=== PATIENT | male | born 1995 | race Caucasian/White ===

== ENCOUNTER 2017-06-10 09:26 | Emergency (ER) | payer OTHER, MEDICAID ==
[~2017-06-10] VITALS: Ht 175.3 cm; Wt 95.3 kg
[~2017-06-10 09:26] MED LIST: ACETAMINOPHEN-1 EAC1 PO; ALBUTEROL INHAL17 GM IH; ALBUTEROL2.5 MG/31 IH; AMOXICILLIN125 MG PO; AMOXICILLIN875 MG PO; AZITHROMYCIN 2250 MG PO; BENADRYL ALLERG25 MG PO; BENZONATATE100 MG; BUPROPION HCL100 MG PO; CELEXA 20 MG TA20 M1; DESYREL50 MG; DOXYCYCLINE 10100 M1 PO; DOXYCYCLINE 10100 MG PO; EPIPEN0.3 MG/0.3 IM; FOCALIN XR10 MG; IBUPROFEN 800800 M1 PO; LISINOPRIL20 MG PO; MEDROLDOSEPACK PO; ONDANSETRON HCL4 M2 PO; OSELB75 PO; OXCARBAZEPINE150 MG PO; PREDNISONE 20 M20 MG PO; PRINIVIL40 MG PO; SEROQUEL 100 M100 M1 PO; SEROQUEL 50 MG50 M1 PO; SEROQUEL XR50 MG PO; TOPAMAX 25 MG T25 MG OR; TRIAMCINOLONE A60 M1 TP; TRILEPTAL150 MG PO; VITAMIN; WELLBUTRIN 100100 MG PO; WELLBUTRIN SR150 MG; ZOFRAN ODT4 MG PO; ZOLOFT25 MG PO; ZPAK; ZPAK PO
[2017-06-10 10:37] VITALS: BP 145/92
== END 2017-06-10 10:38 | disposition home or self-care (01) ==
LOC: M.ERS 09:26
DX: S61.012A Laceration without foreign body of left thumb without damage to nail, initial encounter (principal); I10 Essential (primary) hypertension; F31.9 Bipolar disorder, unspecified; F41.9 Anxiety disorder, unspecified; Z91.018 Allergy to other foods; W26.0XXA Contact with knife, initial encounter; Y93.89 Activity, other specified; Y92.89 Other specified places as the place of occurrence of the external cause; Y99.8 Other external cause status

== ENCOUNTER 2017-08-06 08:35 | Emergency (ER) | payer MEDICAID ==
[~2017-08-06] VITALS: Ht 175.3 cm; Wt 88.5 kg
[2017-08-06] MEDS ORDERED: AMOXICILLIN 50500 MG PO (09:08)
[2017-08-06 09:40] LABS: INFLUENZA A ANTIGEN None Detected (None Detect); INFLUENZA B ANTIGEN None Detected (None Detect)
[2017-08-06 09:42] VITALS: BP 148/65
== END 2017-08-06 09:53 | disposition home or self-care (01) ==
LOC: M.ERS 08:35
PROVIDERS: Family Medicine
DX: J06.9 Acute upper respiratory infection, unspecified (principal); F41.0 Panic disorder [episodic paroxysmal anxiety]; F31.9 Bipolar disorder, unspecified; I10 Essential (primary) hypertension; Z91.018 Allergy to other foods

== ENCOUNTER 2017-12-22 15:09 | Emergency (ER) | payer MEDICAID ==
[~2017-12-22] VITALS: Ht 177.8 cm; Wt 93.0 kg
[~2017-12-22 15:09] MED LIST changes: +AMOXICILLIN 50500 MG PO
[2017-12-22 15:15] VITALS: BP 125/73
[2017-12-22] MEDS ORDERED: ZPAK PO (15:51)
[2017-12-22] MEDS ORDERED: BENZONATATE200 MG PO (15:51)
== END 2017-12-22 15:57 | disposition home or self-care (01) ==
LOC: M.ERS 15:09
DX: J20.9 Acute bronchitis, unspecified (principal); R50.9 Fever, unspecified; I10 Essential (primary) hypertension; F31.9 Bipolar disorder, unspecified; F41.9 Anxiety disorder, unspecified; Z91.02 Food additives allergy status

== ENCOUNTER 2017-12-25 15:56 | Emergency (ER) | payer MEDICAID ==
[~2017-12-25] VITALS: Ht 177.8 cm; Wt 93.0 kg
[~2017-12-25 15:56] MED LIST changes: +BENZONATATE200 MG PO
[2017-12-25] MEDS ORDERED: PROAIR HFA8.5 GM INH (16:22)
[2017-12-25] MEDS ORDERED: PREDNISONE 20 M20 M1 PO (16:22)
[2017-12-25 16:50] VITALS: BP 151/76
== END 2017-12-25 16:50 | disposition home or self-care (01) ==
LOC: M.ERS 15:56
DX: J20.9 Acute bronchitis, unspecified (principal); I10 Essential (primary) hypertension; F31.9 Bipolar disorder, unspecified; F41.9 Anxiety disorder, unspecified; Z91.02 Food additives allergy status

== ENCOUNTER 2018-12-16 13:29 | Emergency (ER) | payer MEDICAID ==
[~2018-12-16] VITALS: Ht 175.3 cm; Wt 95.3 kg
[~2018-12-16 13:29] MED LIST changes: +PREDNISONE 20 M20 M1 PO; +PROAIR HFA8.5 GM INH
[2018-12-16 14:12] LABS: ABSOLUTE BASOPHILS 0.1 thou/uL (0.0-0.2); ABSOLUTE EOSINOPHILS 0.1 thou/uL (0.0-0.7); ABSOLUTE LYMPHOCYTES 1.6 thou/uL (0.8-5.3); ABSOLUTE MONOCYTES 0.8 thou/uL (0.0-1.2); ABSOLUTE NEUTROPHILS 3.9 thou/uL (1.6-8.1); BASOPHILS 0.9 %; EOSINOPHILS 0.8 %; HEMATOCRIT 45.6 % (42.0-52.0); HEMOGLOBIN 15.7 gm/dL (14.0-18.0); LYMPHOCYTES 24.9 %; MCH 31.1 pg (26.0-34.0); MCHC 34.4 g/dL (28.0-37.0); MCV 90.6 fL (80.0-100.0); MONOCYTES 12.4 %; MPV 9.3 fl. (7.2-11.1); NUCLEATED RBCS 0 /100WBC; PLATELET COUNT* 211 thou/uL (150-400); RBC 5.04 mil/uL (4.50-6.00); RDW-CV 13.2 % (10.5-14.5); WBC 6.4 thou/uL (4.0-11.0)
[2018-12-16 14:22] LABS: ANION GAP 10 mmol/L (7-16); BUN 10 mg/dL (7-18); CALCIUM 8.6 mg/dL (8.5-10.1); CHLORIDE 107 mmol/L (98-107); CO2 28 mmol/L (21-32); GLUCOSE 92 mg/dL (70-99); POTASSIUM 3.4 mmol/L (3.5-5.1); SODIUM 145 mmol/L (136-145)
[2018-12-16 14:34] LABS: ALBUMIN 3.7 g/dL (3.4-5.0); ALKALINE PHOSPHATASE 139 U/L (46-116); LIPASE 142 U/L (73-393); SGOT 21 U/L (15-37); SGPT 40 U/L (30-65); TOTAL BILIRUBIN 0.6 mg/dL (<0.1-1.0); TOTAL PROTEIN 7.1 g/dL (6.4-8.2); TROPONIN-I LEVEL <0.06 ng/mL (<0.06)
[2018-12-16 17:49] VITALS: BP 146/92
--- NOTE | 2018-12-17 10:54 | EKG ---
[place] [address] ELECTROCARDIOGRAM REPORT Name: GEOVANNI BROWN Room: [facility]#: [id number] Admission: 12/16/18 Attend Phys: Discharge: 12/16/18 Date of : [birth year] Report #: [id number] THIS REPORT FOR: //name// [facility] ED Test Date: 2018-12-16 Test Time: 14:08:20 Pat Name: GEOVANNI STEPHANIE Department: Room: Gender: M Hospice Admitting Clerk: CHARY : 1995 Requested By: Aashish Roblero Order Number: [id number] MD: Keanu Burden Measurements Intervals [place] Rate: 100 P: 58 RI: 146 QRS: 42 QRSD: 95 T: 32 QT: 324 QTc: 418 Interpretive Statements Incomplete analysis due to missing data in precordial lead(s) Sinus tachycardia ST elev, probable normal early repol pattern Missing lead(s): V3 Compared to ECG 12/11/2018 23:05:49 Sinus rhythm no longer present ST (T wave) deviation still present Electronically Signed On 12-17-2018 10:54:28 CDT by Keanu Burden [email or web address] <ELECTRONICALLY SIGNED> By: Keanu Burden MD, [facility] 12/17/18 1054 1408 1408 Keanu Burden MD, [facility] /EPI
--- NOTE | 2018-12-17 14:19 | EKG ---
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 12/17/18 1419 1438 1438 Keanu Burden MD, FACC /EPI
== END 2018-12-16 17:49 | disposition home or self-care (01) ==
LOC: M.ERS 13:29
PROVIDERS: Emergency Medicine Emergency Medical Services
DX: T67.5XXA Heat exhaustion, unspecified, initial encounter (principal); X58.XXXA Exposure to other specified factors, initial encounter; Y93.89 Activity, other specified; Y92.89 Other specified places as the place of occurrence of the external cause; Y99.8 Other external cause status; I10 Essential (primary) hypertension; F31.9 Bipolar disorder, unspecified; F41.9 Anxiety disorder, unspecified; Z91.09 Other allergy status, other than to drugs and biological substances; R55 Syncope and collapse

== ENCOUNTER 2018-12-27 21:28 | Emergency (ER) | payer MEDICAID ==
[~2018-12-27] VITALS: Ht 175.3 cm; Wt 95.3 kg
[2018-12-27 22:04] LABS: URINE BILIRUBIN NEGATIVE (Negative); URINE BLOOD NEGATIVE (Negative); URINE CLARITY CLEAR; URINE COLOR YELLOW; URINE GLUCOSE-RANDOM NEGATIVE (Negative); URINE KETONES NEGATIVE (Negative); URINE LEUKOCYTES-REFLEX NEGATIVE (Negative); URINE NITRITE-REFLEX NEGATIVE (Negative); URINE PROTEIN NEGATIVE (Negative); URINE SPECIFIC GRAVITY 1.015 (1.005-1.030)
[2018-12-27 22:10] LABS: ABSOLUTE EOSINOPHILS 0.1 thou/uL (0.0-0.7); ABSOLUTE LYMPHOCYTES 1.8 thou/uL (0.8-5.3); ABSOLUTE MONOCYTES 0.8 thou/uL (0.0-1.2); ABSOLUTE NEUTROPHILS 3.1 thou/uL (1.6-8.1); BASOPHILS 0.8 %; EOSINOPHILS 2.4 %; HEMATOCRIT 48.2 % (42.0-52.0); HEMOGLOBIN 16.2 gm/dL (14.0-18.0); LYMPHOCYTES 31.3 %; MCH 30.9 pg (26.0-34.0); MCHC 33.6 g/dL (28.0-37.0); MCV 91.9 fL (80.0-100.0); MONOCYTES 13.1 %; MPV 9.7 fl. (7.2-11.1); NUCLEATED RBCS 0 /100WBC; PLATELET COUNT* 202 thou/uL (150-400); POLYS 52.4 %; RBC 5.24 mil/uL (4.50-6.00); WBC 5.8 thou/uL (4.0-11.0)
[2018-12-27 22:16] LABS: ANION GAP 8 mmol/L (7-16); BUN 9 mg/dL (7-18); CALCIUM 9.4 mg/dL (8.5-10.1); CHLORIDE 105 mmol/L (98-107); CO2 27 mmol/L (21-32); GLUCOSE 107 mg/dL (70-99); POTASSIUM 3.4 mmol/L (3.5-5.1); SODIUM 140 mmol/L (136-145)
[2018-12-27 22:26] LABS: ALBUMIN 3.9 g/dL (3.4-5.0); ALKALINE PHOSPHATASE 149 U/L (46-116); SGOT 22 U/L (15-37); SGPT 37 U/L (30-65); TOTAL BILIRUBIN 0.5 mg/dL (<0.1-1.0); TOTAL PROTEIN 7.5 g/dL (6.4-8.2); TROPONIN-I LEVEL <0.06 ng/mL (<0.06)
[2018-12-28] MEDS ORDERED: ZOFRAN ODT4 MG PO (00:21)
[2018-12-28 00:30] VITALS: BP 123/90
--- NOTE | 2018-12-28 16:43 | EKG ---
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 : 1995 Requested By: Martina Gaxiola Order Number: [id number] MD: Mitch Rosario Measurements Intervals [place] Rate: 89 P: 48 RI: 138 QRS: 51 QRSD: 96 T: 8 QT: 336 QTc: 409 Interpretive Statements Sinus rhythm ST elev, probable normal early repol pattern Compared to ECG 12/16/2018 14:38:25 No significant changes Electronically Signed On 12-28-2018 16:43:41 CDT by Mitch Rosario [email or web address] <ELECTRONICALLY SIGNED> By: Mitch Rosaroi MD, [facility] 12/28/18 1643 2149 48 Mitch Rosario MD, FACC /EPI
== END 2018-12-28 00:30 | disposition home or self-care (01) ==
LOC: M.ERS 21:28
PROVIDERS: Personal Emergency Response Attendant
DX: K52.9 Noninfective gastroenteritis and colitis, unspecified (principal); F31.9 Bipolar disorder, unspecified; I10 Essential (primary) hypertension; F41.0 Panic disorder [episodic paroxysmal anxiety]; Z91.018 Allergy to other foods

== ENCOUNTER 2019-05-25 02:09 | Emergency (ER) | payer OTHER ==
[~2019-05-25] VITALS: Ht 175.3 cm; Wt 83.9 kg
[2019-05-25 02:50] LABS: AMP/METHAMP Negative (Negative); BARBITURATES Negative (Negative); BENZODIAZEPINES Negative (Negative); COCAINE Negative (Negative); METHADONE Negative (Negative); OPIATES Negative (Negative); PCP Negative (Negative); THC POSITIVE (Negative)
[2019-05-25 03:01] LABS: ABSOLUTE BASOPHILS 0.1 thou/uL (0.0-0.2); ABSOLUTE EOSINOPHILS 0.1 thou/uL (0.0-0.7); ABSOLUTE LYMPHOCYTES 2.3 thou/uL (0.8-5.3); ABSOLUTE MONOCYTES 0.9 thou/uL (0.0-1.2); ABSOLUTE NEUTROPHILS 6.4 thou/uL (1.6-8.1); BASOPHILS 0.6 %; HEMATOCRIT 47.3 % (42.0-52.0); HEMOGLOBIN 16.1 gm/dL (14.0-18.0); MCH 31.1 pg (26.0-34.0); MCV 91.4 fL (80.0-100.0); MONOCYTES 9.7 %; MPV 9.8 fl. (7.2-11.1); NUCLEATED RBCS 0 /100WBC; PLATELET COUNT* 228 thou/uL (150-400); POLYS 65.7 %; RBC 5.18 mil/uL (4.50-6.00); RDW-CV 12.9 % (10.5-14.5); WBC 9.8 thou/uL (4.0-11.0)
[2019-05-25 03:09] LABS: CALCIUM 9.4 mg/dL (8.5-10.1); CREATININE 0.9 mg/dL (0.6-1.3); POTASSIUM 3.7 mmol/L (3.5-5.1)
[2019-05-25 03:13] LABS: TOTAL BILIRUBIN 0.5 mg/dL (<0.1-1.0); TOTAL PROTEIN 7.6 g/dL (6.4-8.2)
[2019-05-25] MEDS ORDERED: CARAFATE 1 GM TA1 GM PO (03:36)
[2019-05-25 05:10] VITALS: BP 113/72
== END 2019-05-25 05:10 | disposition home or self-care (01) ==
LOC: M.ERS 02:09
PROVIDERS: Personal Emergency Response Attendant
DX: K92.0 Hematemesis (principal); I10 Essential (primary) hypertension; F31.9 Bipolar disorder, unspecified; Z91.018 Allergy to other foods

== ENCOUNTER 2019-07-03 22:49 | Emergency (ER) | payer OTHER ==
[~2019-07-03] VITALS: Ht 175.3 cm; Wt 83.9 kg
[~2019-07-03 22:49] MED LIST changes: +CARAFATE 1 GM TA1 GM PO
[2019-07-03 23:37] LABS: INFLUENZA A ANTIGEN Negative (Negative)
[2019-07-04] MEDS ORDERED: PROMETHAZINE-C473 ML PO (00:10)
[2019-07-04] MEDS ORDERED: TAMIFLU75 MG PO (00:10)
[2019-07-04 00:20] VITALS: BP 135/78
== END 2019-07-04 00:21 | disposition home or self-care (01) ==
LOC: M.ERS 22:49
PROVIDERS: Personal Emergency Response Attendant
DX: J10.1 Influenza due to other identified influenza virus with other respiratory manifestations (principal); I10 Essential (primary) hypertension; F31.9 Bipolar disorder, unspecified; F41.9 Anxiety disorder, unspecified; Z91.018 Allergy to other foods

== ENCOUNTER 2019-07-29 13:43 | Emergency (ER) | payer OTHER ==
[~2019-07-29] VITALS: Ht 175.3 cm; Wt 83.9 kg
[~2019-07-29 13:43] MED LIST changes: +PROMETHAZINE-C473 ML PO; +TAMIFLU75 MG PO
[2019-07-29 14:09] LABS: ABSOLUTE EOSINOPHILS 0.1 thou/uL (0.0-0.7); ABSOLUTE LYMPHOCYTES 1.6 thou/uL (0.8-5.3); ABSOLUTE MONOCYTES 0.6 thou/uL (0.0-1.2); ABSOLUTE NEUTROPHILS 3.6 thou/uL (1.6-8.1); BASOPHILS 0.8 %; EOSINOPHILS 1.2 %; HEMATOCRIT 47.7 % (42.0-52.0); HEMOGLOBIN 16.3 gm/dL (14.0-18.0); LYMPHOCYTES 27.6 %; MCH 31.2 pg (26.0-34.0); MCHC 34.2 g/dL (28.0-37.0); MCV 91.2 fL (80.0-100.0); MONOCYTES 9.7 %; MPV 9.1 fl. (7.2-11.1); NUCLEATED RBCS 0 /100WBC; PLATELET COUNT* 233 thou/uL (150-400); POLYS 60.7 %; RBC 5.23 mil/uL (4.50-6.00); RDW-CV 13.6 % (10.5-14.5); WBC 5.9 thou/uL (4.0-11.0)
[2019-07-29 14:14] LABS: CALCIUM 9.3 mg/dL (8.5-10.1); CREATININE 0.9 mg/dL (0.6-1.3); POTASSIUM 4.2 mmol/L (3.5-5.1)
[2019-07-29 14:15] LABS: APTT 26.4 Seconds (25.0-31.3); INR 1.2; PROTIME 12.6 Seconds (9.20-11.50)
[2019-07-29 14:26] LABS: ALBUMIN 4.3 g/dL (3.4-5.0); TOTAL BILIRUBIN 0.8 mg/dL (<0.1-1.0); TOTAL PROTEIN 8.2 g/dL (6.4-8.2)
[2019-07-29 14:31] LABS: URINE BILIRUBIN NEGATIVE (Negative); URINE BLOOD NEGATIVE (Negative); URINE CLARITY CLEAR; URINE COLOR YELLOW; URINE GLUCOSE-RANDOM NEGATIVE (Negative); URINE KETONES NEGATIVE (Negative); URINE LEUKOCYTES-REFLEX NEGATIVE (Negative); URINE NITRITE-REFLEX NEGATIVE (Negative); URINE PROTEIN NEGATIVE (Negative); URINE SPECIFIC GRAVITY 1.025 (1.005-1.030); URINE UROBILINOGEN 0.2 E.U./dl (0.2-1.0)
[2019-07-29 14:39] LABS: AMP/METHAMP Negative (Negative); BARBITURATES Negative (Negative); BENZODIAZEPINES Negative (Negative); COCAINE Negative (Negative); METHADONE Negative (Negative); OPIATES Negative (Negative); PCP Negative (Negative); THC Negative (Negative)
[2019-07-29] MEDS ORDERED: CARAFATE1 GM/10 ML PO (16:23)
[2019-07-29] MEDS ORDERED: OMEPRAZOLE 20 M20 M1 PO (16:23)
[2019-07-29 17:00] VITALS: BP 135/75
--- NOTE | 2019-07-30 11:32 | EKG ---
[place] [address] ELECTROCARDIOGRAM REPORT Name: GEOVANNI BROWN Room: [facility]#: [id number] Admission: 07/29/19 Attend Phys: Discharge: 07/29/19 Date of : [birth year] Date of Service: 07/29/19 1437 Report #: [id number] THIS REPORT FOR: //name// [facility] ED Test Date: 2019-07-29 Test Time: 14:37:27 Pat Name: GEOVANNI BROWN Department: Room: Gender: Frit Maker: [facility] : 1995 Requested By: Cassandra Fairchild Order Number: [id number] MD: Mitch Rosario Measurements Intervals [place] Rate: 89 P: 64 DE: 135 QRS: 55 QRSD: 93 T: 25 QT: 330 QTc: 402 Interpretive Statements Sinus rhythm ST elev, probable normal early repol pattern Compared to ECG 12/27/2018 21:49:37 No significant changes Electronically Signed On 07-30-2019 11:30:52 SPUD [employer]ORTER by Mitch Rosario [email or web address] <ELECTRONICALLY SIGNED> By: Mitch Rosario MD, [facility] 07/30/19 1130 1437 1437 Mitch Rosario MD, [facility] /EPI
== END 2019-07-29 17:01 | disposition home or self-care (01) ==
LOC: M.ERS 13:43
PROVIDERS: Physician Assistant
DX: K92.0 Hematemesis (principal); I10 Essential (primary) hypertension; F31.9 Bipolar disorder, unspecified; Z88.8 Allergy status to other drugs, medicaments and biological substances; Z91.018 Allergy to other foods